=== PATIENT | male | born 1965 | race Caucasian/White ===

== ENCOUNTER 2018-09-07 13:34 | Outpatient (CLI) | payer OTHER ==
[~2018-09-07] VITALS: Ht 182.9 cm; Wt 104.3 kg
[~2018-09-07 13:34] MED LIST: DIVA-20; HCT25T; IBP800T; LISI20TA; OXYM30SP
[2018-09-07] MEDS ORDERED: PANT40TA3 PO (14:04)
[2018-09-07] MEDS ORDERED: ALPR0.254 PO (14:04)
[2018-09-07] MEDS ORDERED: MULT-1056 PO (14:04)
[2018-09-07] MEDS ORDERED: RT-ALBUINH IH (14:04)
[2018-09-07] MEDS ORDERED: SIMV40TA PO (14:04)
[2018-09-07] MEDS ORDERED: ALLO300T2 PO (14:04)
[2018-09-07] MEDS ORDERED: TRAM50TA2 PO (14:04)
[2018-09-07] MEDS ORDERED: DIVA500T15 PO (14:04)
[2018-09-07] MEDS ORDERED: FLUT9.9S NSEACH (14:04)
[2018-09-07] MEDS ORDERED: LISI-552 PO (14:04)
[2018-09-07] MEDS ORDERED: HYDR25TA4 PO (14:04)
== END 2018-09-07 14:05 | disposition home or self-care (01) ==
LOC: PREOP 13:34
PROVIDERS: ATTEND Specialist
DX: Z01.818 Encounter for other preprocedural examination (principal)

== ENCOUNTER 2018-09-11 07:19 | Day surgery (SDC) | payer BC, OTHER ==
[~2018-09-11] VITALS: Ht 182.9 cm; Wt 104.3 kg
[~2018-09-11 07:19] MED LIST changes: +ALLO300T2 PO; +ALPR0.254 PO; +DIVA500T15 PO; +FLUT9.9S NSEACH; +HYDR25TA4 PO; +LISI-552 PO; +MULT-1056 PO; +PANT40TA3 PO; +RT-ALBUINH IH; +SIMV40TA PO; +TRAM50TA2 PO
[2018-09-11] MEDS ORDERED: LIDOCAINE PF 1% 2 ML AMP IR PRN (07:30)
[2018-09-11] MEDS ORDERED: POVIDONE (BETADINE) OPHTH SOLN 5% 30 ML OP ONE (07:30)
[2018-09-11] MEDS ORDERED: MOXIFLOXACIN OPHTH SOLN 5 MG/ML 0.3 ML SYRINGE OP ONE (07:30)
[2018-09-11] MEDS ORDERED: TIMOLOL MALEATE 0.5% 5 ML (TIMOPTIC) BTL OU PRN (07:30)
[2018-09-11 07:35] VITALS: BP 125/81
[2018-09-11] MEDS: TETRACAINE 0.5% OPHTH SOLN 4 ML BTL (SINGLE DOSE ONLY) OU PRN ×4 (07:39→07:55)
[2018-09-11] MEDS: PHENYLEPHRINE 10% OPHTH (NEO-SYN) 5 ML BTL OU SCH ×3 (07:47→07:55)
[2018-09-11] MEDS: CYCLOPENTOLATE 1% (CYCLOGYL) 2 ML DROPS OP SCH ×3 (07:47→07:55)
--- NOTE | 2018-09-11 08:01 | Ophthalmologist Pre-Op Note ---
Pre-Operative Progress Note H&P Reviewed The H&P was reviewed, patient examined and no changes noted. Date H&P Reviewed: Sep 11, 2018 Time H&P Reviewed: 08:01 Pre-Op Dx Cataract, Right Eye EL FRANZ MD Sep 11, 2018 08:01
[2018-09-11] MEDS ORDERED: MIDAZOLAM 2 MG/2 ML (VERSED) VIAL ONE (08:33)
--- NOTE | 2018-09-11 08:53 | Ophthalmology Operative Report ---
Cataract removal/placement IOL PREOPERATIVE DIAGNOSIS: Cataract Right Eye POSTOPERATIVE DIAGNOSIS: Cataract Right Eye PROCEDURE: Cataract removal and placement of posterior chamber implant, right eye SURGEON: Ashok Franz ANESTHESIA: Topical with sedation COMPLICATIONS: None ESTIMATED BLOOD LOSS: Minimal DESCRIPTION OF PROCEDURE: After proper informed consent was obtained, the patient, a 52 male, was taken to the Operating Room and the right eye was anesthetized with tetracaine. The right eye was then prepped and draped in the usual manner. A wire lid speculum was placed. A paracentesis was made at the left hand position. Preservative free lidocaine was injected into the anterior chamber followed by viscoelastic. A clear corneal incision was made in the temporal position. A capsulorrhexis was preformed and the central nuclear and cortical material were removed. The posterior capsule was polished and Jose Enrique 23.0 AU00T0 IOL was placed into the capsular bag. The residual viscoelastic was aspirated and balanced saline solution was injected into the anterior chamber. Moxifloxacin was injected into the anterior chamber. The wound was checked and found to be water tight. The patient tolerated the procedure well without complications. ASHOK FRANZ MD Sep 11, 2018 08:53
[2018-09-11 09:00] VITALS: BP 126/81
[2018-09-11] MEDS ORDERED: acetaZOLAMIDE ER 500 MG CAP (DIAMOX SEQUELS) PO ONE (09:00)
--- NOTE | 2018-09-11 13:10 | Anesthesia-General Post-Op ---
MAC Patient Condition Mental Status/LOC: Same as Preop Cardiovascular: Satisfactory Nausea/Vomiting: Absent Respiratory: Satisfactory Pain: Controlled Complications: Absent Post Op Complications Complications None Follow Up Care/Instructions Patient Instructions None needed. Anesthesiology Discharge Order Discharge Order Patient is doing well, no complaints, stable vital signs, no apparent adverse anesthesia problems. No complications reported per nursing. BLU SIMEON CRNA Sep 11, 2018 13:10
== END 2018-09-11 09:00 | disposition home or self-care (01) ==
LOC: SDC 07:19
PROVIDERS: ATTEND Specialist
DX: H25.11 Age-related nuclear cataract, right eye (principal); I10 Essential (primary) hypertension; K21.9 Gastro-esophageal reflux disease without esophagitis; F41.9 Anxiety disorder, unspecified; F17.210 Nicotine dependence, cigarettes, uncomplicated; Z79.899 Other long term (current) drug therapy

== ENCOUNTER 2018-09-30 09:30 | Outpatient (CLI) | payer BC | END 2018-09-30 09:51 | disposition home or self-care (01) | LOC: PREOP 09:30 | PROVIDERS: ATTEND Specialist | DX: Z01.818 Encounter for other preprocedural examination (principal) ==

== ENCOUNTER 2018-10-02 05:59 | Day surgery (SDC) | payer BC ==
[~2018-10-02] VITALS: Ht 182.9 cm; Wt 104.3 kg
[2018-10-02] MEDS ORDERED: TIMOLOL MALEATE 0.5% 5 ML (TIMOPTIC) BTL OU PRN (06:15)
[2018-10-02] MEDS ORDERED: LIDOCAINE PF 1% 2 ML AMP IR PRN (06:15)
[2018-10-02] MEDS ORDERED: MOXIFLOXACIN OPHTH SOLN 5 MG/ML 0.3 ML SYRINGE OP ONE (06:15)
[2018-10-02] MEDS ORDERED: POVIDONE (BETADINE) OPHTH SOLN 5% 30 ML OP ONE (06:15)
[2018-10-02 06:16] VITALS: BP 127/80
[2018-10-02] MEDS: TETRACAINE 0.5% OPHTH SOLN 4 ML BTL (SINGLE DOSE ONLY) OU PRN ×4 (06:19→06:41)
[2018-10-02] MEDS: CYCLOPENTOLATE 1% (CYCLOGYL) 2 ML DROPS OP SCH ×3 (06:28→06:41)
[2018-10-02] MEDS: PHENYLEPHRINE 10% OPHTH (NEO-SYN) 5 ML BTL OU SCH ×3 (06:28→06:41)
--- NOTE | 2018-10-02 07:03 | Ophthalmologist Pre-Op Note ---
Pre-Operative Progress Note H&P Reviewed The H&P was reviewed, patient examined and no changes noted. Date H&P Reviewed: Oct 02, 2018 Time H&P Reviewed: 07:03 Pre-Op Dx Cataract, Left Eye EL FRANZ MD Oct 02, 2018 07:03
[2018-10-02] MEDS ORDERED: MIDAZOLAM 2 MG/2 ML (VERSED) VIAL ONE (07:13)
[2018-10-02] MEDS ORDERED: acetaZOLAMIDE ER 500 MG CAP (DIAMOX SEQUELS) PO ONE (07:30)
--- NOTE | 2018-10-02 07:31 | Ophthalmology Operative Report ---
Cataract removal/placement IOL PREOPERATIVE DIAGNOSIS: Cataract Left Eye POSTOPERATIVE DIAGNOSIS: Cataract Left Eye PROCEDURE: Cataract removal and placement of posterior chamber implant, left eye SURGEON: Ashok Franz ANESTHESIA: Topical with sedation COMPLICATIONS: None ESTIMATED BLOOD LOSS: Minimal DESCRIPTION OF PROCEDURE: After proper informed consent was obtained, the patient, a 52 male, was taken to the Operating Room and the left eye was anesthetized with tetracaine. The left eye was then prepped and draped in the usual manner. A wire lid speculum was placed. A paracentesis was made at the left hand position. Preservative free lidocaine was injected into the anterior chamber followed by viscoelastic. A clear corneal incision was made in the temporal position. A capsulorrhexis was preformed and the central nuclear and cortical material were removed. The posterior capsule was polished and an Jose Enrique 22.5 AU00T0 was placed into the capsular bag. The residual viscoelastic was aspirated and balanced saline solution was injected into the anterior chamber. Moxifloxacin was injected into the anterior chamber. The wound was checked and found to be water tight. The patient tolerated the procedure well without complications. ASHOK FRANZ MD Oct 02, 2018 07:31
[2018-10-02 07:40] VITALS: BP 133/74
--- NOTE | 2018-10-02 10:19 | Anesthesia-General Post-Op ---
MAC Patient Condition Mental Status/LOC: Same as Preop Cardiovascular: Satisfactory Nausea/Vomiting: Absent Respiratory: Satisfactory Pain: Controlled Complications: Absent Post Op Complications Complications None Follow Up Care/Instructions Patient Instructions None needed. Anesthesiology Discharge Order Discharge Order Patient is doing well, no complaints, stable vital signs, no apparent adverse anesthesia problems. No complications reported per nursing. WILLIAM CUADRA CRNA Oct 02, 2018 10:19
== END 2018-10-02 07:40 | disposition home or self-care (01) ==
LOC: SDC 05:59
PROVIDERS: ATTEND Specialist
DX: H25.12 Age-related nuclear cataract, left eye (principal); I10 Essential (primary) hypertension; F17.210 Nicotine dependence, cigarettes, uncomplicated; K21.9 Gastro-esophageal reflux disease without esophagitis; F41.9 Anxiety disorder, unspecified; Z79.899 Other long term (current) drug therapy

== ENCOUNTER → 2020-04-05 | Outpatient (CLI) | payer BC ==
[~2020-04-05] MED LIST changes: +HOLD METFORMIN - RECEIVED CONTRAST 20 ML VIAL IV SCH; +IOHEXOL 350 MG/ML 100 ML (OMNIPAQUE 350) VIAL IV ONE; +NS 100 ML (IVPB) BAG IV ONE; -TRAM50TA2 PO; +TRM50T PO
[2020-04-05 08:23] LABS: ALANINE AMINOTRANSFERASE 48 U/L (0-55); ALBUMIN 4.6 GM/DL (3.2-4.5); ALKALINE PHOSPHATASE 47 U/L (40-136); BILIRUBIN,TOTAL 0.4 MG/DL (0.1-1.0); BUN/CREATININE RATIO 11; CALCIUM 9.3 MG/DL (8.5-10.1); CARBON DIOXIDE 27 MMOL/L (21-32); CHLORIDE 100 MMOL/L (98-107); CREATININE SERUM 0.93 MG/DL (0.60-1.30); GFR ESTIMATED > 60; GLUCOSE 113 MG/DL (70-105); POTASSIUM 4.3 MMOL/L (3.6-5.0); SODIUM 139 MMOL/L (135-145); TOTAL PROTEIN 7.9 GM/DL (6.4-8.2)
--- NOTE | 2020-04-05 09:23 | Diagnostic Imaging Report ---
PROCEDURE: CT head with and without contrast. TECHNIQUE: Multiple contiguous axial images were obtained through the brain before and after the administration of intravenous contrast. Auto Exposure Controls were utilized during the CT exam to meet ALARA standards for radiation dose reduction. INDICATION: Constant headache and speech difficulty. No prior studies are available for comparison. Ventricles and sulci are within normal limits. No sulcal effacement or midline shift is identified. No acute intra-axial or extra-axial hemorrhage is detected. No abnormal enhancement following contrast administration is identified. Visualized paranasal sinuses demonstrate some mild mucosal thickening of the sphenoid sinus and ethmoid air cells. No air-fluid levels are seen. IMPRESSION: Mild paranasal sinus mucosal disease. CT brain with and without contrast is otherwise unremarkable. Dictated by: Dictated on workstation # [id number]
== END ==
LOC: RAD 07:46
PROVIDERS: ATTEND Nurse Practitioner Family
DX: J34.89 Other specified disorders of nose and nasal sinuses (principal); R42 Dizziness and giddiness
CPT/HCPCS: 36415; 70470; 80053

== ENCOUNTER → 2020-09-07 | Outpatient (CLI) | payer BC ==
[~2020-09-07] MED LIST changes: +ALPR.25T PO; -ALPR0.254 PO; -HOLD METFORMIN - RECEIVED CONTRAST 20 ML VIAL IV SCH; -IOHEXOL 350 MG/ML 100 ML (OMNIPAQUE 350) VIAL IV ONE; -LISI-552 PO; +LISI20TA26 PO; -NS 100 ML (IVPB) BAG IV ONE; -PANT40TA3 PO; +PANT40TA52 PO
--- NOTE | 2020-09-07 15:41 | Diagnostic Imaging Report ---
PROCEDURE: CT sinuses without contrast TECHNIQUE: Multiple contiguous axial images were obtained through the sinuses without the use of intravenous contrast. Coronal and sagittal reformations were then performed. Auto Exposure Controls were utilized during the CT exam to meet ALARA standards for radiation dose reduction. INDICATION: Sinusitis, cataracts. FINDINGS: The nasal septum is midline. Turbinates unremarkable. There is resection of the medial maxillary sinus meade and partial ethmoidectomy. The residual ethmoid air cells show some membrane thickening and partial opacification posteriorly, greater left. Globular mild membrane thickening in the sphenoid sinuses. There is a mucus retention cyst and superimposed membrane disease thickening in the floor of the right maxillary sinus. The reconstructed maxillary sinus ostia are widely patent. There is no paranasal sinus air-fluid level. The frontal sinuses are clear. The orbital contents unremarkable. The left mastoid air cells and middle ear cavities are clear. The right-sided mastoid air cells show no opacification inferiorly. The nasopharynx shows no suspicious asymmetry. IMPRESSION: 1. Postsurgical changes and chronic appearing paranasal sinus membrane disease without air-fluid level or ostial obstruction. 2. Relatively mild unilateral right-sided mastoid effusion. Dictated by: Dictated on workstation # [id number]
== END ==
LOC: RAD 10:48
PROVIDERS: ATTEND Otolaryngology Otolaryngology/Facial Plastic Surgery
DX: J32.9 Chronic sinusitis, unspecified (principal); H74.8X1 Other specified disorders of right middle ear and mastoid; Z98.890 Other specified postprocedural states
CPT/HCPCS: 70486

== ENCOUNTER 2021-03-21 10:10 | Emergency (ER) | payer BC ==
[~2021-03-21] VITALS: Ht 182 cm; Wt 102.0 kg
[2021-03-21] MEDS ORDERED: dexAMETHasone 6 MG TAB (DECADRON) ONE (11:09)
[2021-03-21] MEDS ORDERED: HYDROcodone/APAP 5 MG/325 MG (LORTAB) TAB ONE (11:09)
--- NOTE | 2021-03-21 11:10 | ED General ---
General Stated Complaint: SOB Source of Information: Patient Exam Limitations: No Limitations History of Present Illness Date Seen by Provider: Mar 21, 2021 Time Seen by Provider: 11:09 Initial Comments To ER with a cough nonproductive in nature that began on 03/16/2021. He was tested on Monday 03/19 at [facility] and tested negative for Covid. Yesterday he developed a fever up to 101. He does smoke but does not wear oxygen. Does not have a diagnosis of COPD. Timing/Duration: 3-4 Days Severity: Moderate Associated Systoms: Cough Allergies and Home Medications Allergies Coded Allergies: No Known Drug Allergies (Unverified , 10/13/09) Home Medications ALPRAZolam 0.25 Mg Tablet, 0.25 MG PO HS, (Reported) Albuterol Sulfate 1 Puff Puff, 2 PUFF IH Q6H PRN for WHEEZING, (Reported) 1 PUFF = 90 MCG Allopurinol 300 Mg Tablet, 300 MG PO DAILY, (Reported) Divalproex Sodium 500 Mg Tab.er.24h, 500 MG PO BID, (Reported) Fluticasone Propionate 9.9 Ml [place].susp, 2 SPRAY NSEACH DAILY, (Reported) Hydrochlorothiazide 25 Mg Tablet, 25 MG PO DAILY, (Reported) Lisinopril 20 Mg Tablet, 20 MG PO DAILY, (Reported) Multivit-Min/FA/Lycopen/Lutein 1 Each Tablet, 1 EACH PO DAILY, (Reported) Pantoprazole Sodium 40 Mg Tablet.dr, 40 MG PO BID, (Reported) Simvastatin 40 Mg Tablet, 40 MG PO DAILY, (Reported) Tramadol HCl 50 Mg Tablet, 100 MG PO Q6H PRN for PAIN-MILD, (Reported) TAKE 2 (50MG) TABS Patient Home Medication List Home Medication List Reviewed: Yes Review of Systems Review of Systems Constitutional: see HPI EENTM: see HPI Respiratory: see HPI, cough Cardiovascular: no symptoms reported Genitourinary: no symptoms reported Musculoskeletal: no symptoms reported Skin: no symptoms reported Psychiatric/Neurological: No Symptoms Reported Hematologic/Lymphatic: No Symptoms Reported Immunological/Allergic: no symptoms reported Past Sn[place]hi-Cawtjs-Inhthf Hx Past Medical History Reproductive Disorders: No Physical Exam Vital Signs Vital Signs - First Documented 03/21/21 03/21/21 10:32 10:40 Temp 37.6 Pulse 110 Resp 16 B/P (MAP) 128/88 (101) Pulse Ox 96 O2 Delivery Room Air Capillary Refill : Height, Weight, BMI Height: 6'0.00" Weight: 230lbs. 0.0oz. [id number]; BMI Method: General Appearance: No Apparent Distress, WD/WN, Other (Oxygen 93 to 96% on room air. Heart rate 89.) Eyes: Bilateral Eye Normal Inspection, Bilateral Eye PERRL, Bilateral Eye EOMI Neck: Full Range of Motion, Normal Inspection Respiratory: No Accessory Muscle Use, No Respiratory Distress, Decreased Breath Sounds, Wheezing Cardiovascular: Regular Rate, Rhythm, Normal Peripheral Pulses Gastrointestinal: Normal Bowel Sounds, Non Tender, Soft Extremity: Normal Capillary Refill, Normal Inspection Neurologic/Psychiatric: Alert, Oriented x3 Progress/Results/Core Measures Suspected Sepsis SIRS Temperature: Pulse: Respiratory Rate: Laboratory Tests 03/21/21 11:02: White Blood Count 9.1 Blood Pressure / Mean: Laboratory Tests 03/21/21 11:02: Creatinine 0.90, Platelet Count 289, Total Bilirubin 0.3 Results/Orders Lab Results Laboratory Tests Test 03/21/21 11:02 03/21/21 11:07 Range/Units White Blood Count 9.1 4.3-11.0 10^3/uL Red Blood Count 4.94 4.30-5.52 10^6/uL Hemoglobin 15.0 13.3-17.7 g/dL Hematocrit 44 40-54 % Mean Corpuscular Volume 88 80-99 fL Mean Corpuscular Hemoglobin 30 25-34 pg Mean Corpuscular Hemoglobin Concent 35 32-36 g/dL Red Cell Distribution Width 12.8 10.0-14.5 % Platelet Count 289 130-400 10^3/uL Mean Platelet Volume 9.3 9.0-12.2 fL Immature Granulocyte % (Auto) 2 % Neutrophils (%) (Auto) 89 H 42-75 % Lymphocytes (%) (Auto) 6 L 12-44 % Monocytes (%) (Auto) 3 0-12 % Eosinophils (%) (Auto) 0 0-10 % Basophils (%) (Auto) 1 0-10 % Neutrophils # (Auto) 8.1 H 1.8-7.8 10^3/uL Lymphocytes # (Auto) 0.5 L 1.0-4.0 10^3/uL Monocytes # (Auto) 0.3 0.0-1.0 10^3/uL Eosinophils # (Auto) 0.0 0.0-0.3 10^3/uL Basophils # (Auto) 0.1 0.0-0.1 10^3/uL Immature Granulocyte # (Auto) 0.2 H 0.0-0.1 10^3/uL Neutrophils % (Manual) 88 % Lymphocytes % (Manual) 6 % Monocytes % (Manual) 1 % Eosinophils % (Manual) 0 % Basophils % (Manual) 0 % Band Neutrophils 5 % Blood Morphology Comment NORMAL Sodium Level 134 L 135-145 MMOL/L Potassium Level 3.8 3.6-5.0 MMOL/L Chloride Level 96 L 98-107 MMOL/L Carbon Dioxide Level 26 21-32 MMOL/L Anion Gap 12 5-14 MMOL/L Blood Urea Nitrogen 10 7-18 MG/DL Creatinine 0.90 0.60-1.30 MG/DL Estimat Glomerular Filtration Rate 88 BUN/Creatinine Ratio 11 Glucose Level 130 H 70-105 MG/DL Calcium Level 10.0 8.5-10.1 MG/DL Corrected Calcium 8.5-10.1 MG/DL Total Bilirubin 0.3 0.1-1.0 MG/DL Aspartate Amino Transf (AST/SGOT) 24 5-34 U/L Alanine Aminotransferase (ALT/SGPT) 38 0-55 U/L Alkaline Phosphatase 52 40-136 U/L B-Type Natriuretic Peptide 26.7 <100.0 PG/ML Total Protein 8.3 H 6.4-8.2 GM/DL Albumin 4.8 H 3.2-4.5 GM/DL Procalcitonin 0.06 <0.10 NG/ML SARS-CoV-2 RNA (RT-PCR) Not Detected Not Detecte My Orders Orders - CONNIE DON APRN Covid 19 Inhouse Test (03/21/21 10:43) Cbc With Automated Diff (03/21/21 10:53) Comprehensive Metabolic Panel (03/21/21 10:53) Ua Culture If Indicated (03/21/21 10:53) Ed Iv/Invasive Line Start (03/21/21 10:53) BNP (03/21/21 10:53) Chest 1 View, Ap/Pa Only (03/21/21 10:53) Hydrocodone/Apap 5/325 Tablet (Lortab 5 (03/21/21 11:15) Dexamethasone Tablet (Decadron Tablet) (03/21/21 11:15) Procalcitonin (Pct) (03/21/21 11:08) Dexamethasone Tablet (Decadron Tablet) (03/21/21 11:09) Hydrocodone/Apap 5/325 Tablet (Lortab 5 (03/21/21 11:09) Manual Differential (03/21/21 11:02) Albuterol/Ipra Inhalation Soln (Duoneb I (03/21/21 12:15) Svn Small Volume Nebulizer (03/21/21 12:04) Medications Given in ED Current Medications Medications Dose Ordered Sig/Walter Route Start Time Stop Time Status Last Admin Dose Admin Acetaminophen/ Hydrocodone Bitart 1 ea STK-MED ONCE .ROUTE 03/21/21 11:09 03/21/21 11:11 DC 03/21/21 11:14 1 EA Albuterol/ Ipratropium 3 ml ONCE ONCE INH 03/21/21 12:15 03/21/21 12:16 03/21/21 12:12 3 ML Dexamethasone 6 mg STK-MED ONCE .ROUTE 03/21/21 11:09 03/21/21 11:11 DC 03/21/21 11:14 6 MG Vital Signs/I&O 03/21/21 03/21/21 10:32 10:40 Temp 37.6 Pulse 110 110 Resp 16 B/P (MAP) 128/88 (101) Pulse Ox 96 95 O2 Delivery Room Air Room Air Capillary Refill : Diagnostic Imaging Diagonstic Imaging: Xray Comments cxr clear Reviewed: Reviewed by Me Departure Impression Primary Impression: Reactive airway disease Disposition: 01 HOME, SELF-CARE Condition: Stable Departure-Patient Inst. Decision time for Depature: 12:17 Referrals: SELF,KEVIN LINARES (PCP/Family) Primary Care Physician Patient Instructions: How to Use a Nebulizer ED Add. Discharge Instructions: To use your nebulizer breathing treatment every 4 hours for the next 3 days. Take the steroids as directed and the antibiotics. Scripts Azithromycin (Azithromycin) 250 Mg Tablet 250 MG PO UD, #6 TAB TAKE 2 TABLETS ON DAY ONE THEN TAKE 1 TABLET DAILY FOR FOUR MORE DAYS Prov: CONNIE DON ASBESTOS SURVEYOR 03/21/21 Prednisone (Prednisone) 20 Mg Tab 40 MG PO DAILY, #8 TAB 0 Refills Prov: CONNIE DON APRN 03/21/21 Work/School Note: Work Release Form Date Seen in the Emergency Department: Mar 21, 2021 Return to Work: Mar 23, 2021 CONNIE DON APRN Mar 21, 2021 11:10
[2021-03-21] MEDS ORDERED: dexAMETHasone 6 MG TAB (DECADRON) PO SCH (11:15)
[2021-03-21] MEDS ORDERED: HYDROcodone/APAP 5 MG/325 MG (LORTAB) TAB PO ONE (11:15)
[2021-03-21 11:17] LABS: ALBUMIN 4.8 GM/DL (3.2-4.5)
[2021-03-21 11:18] LABS: CHLORIDE 96 MMOL/L (98-107); POTASSIUM 3.8 MMOL/L (3.6-5.0); SODIUM 134 MMOL/L (135-145)
[2021-03-21 11:20] LABS: BASOPHILS # (AUTO) 0.1 10^3/uL (0.0-0.1); BASOPHILS % (AUTO) 1 % (0-10); EOSINOPHILS % (AUTO) 0 % (0-10); GLUCOSE 130 MG/DL (70-105); HEMATOCRIT 44 % (40-54); LYMPHOCYTES # (AUTO) 0.5 10^3/uL (1.0-4.0); LYMPHOCYTES % (AUTO) 6 % (12-44); MEAN CORPUSCULAR HEMOGLOBIN 30 pg (25-34); MEAN CORPUSCULAR HGB CONC 35 g/dL (32-36); MEAN CORPUSCULAR VOLUME 88 fL (80-99); MEAN PLATELET VOLUME 9.3 fL (9.0-12.2); MONOCYTES # (AUTO) 0.3 10^3/uL (0.0-1.0); MONOCYTES % (AUTO) 3 % (0-12); NEUTROPHILS # (AUTO) 8.1 10^3/uL (1.8-7.8); NEUTROPHILS % (AUTO) 89 % (42-75); PLATELET COUNT 289 10^3/uL (130-400); TOTAL PROTEIN 8.3 GM/DL (6.4-8.2); WHITE BLOOD COUNT 9.1 10^3/uL (4.3-11.0)
[2021-03-21 11:21] LABS: CARBON DIOXIDE 26 MMOL/L (21-32)
[2021-03-21 11:22] LABS: BILIRUBIN,TOTAL 0.3 MG/DL (0.1-1.0)
[2021-03-21 11:23] LABS: ALKALINE PHOSPHATASE 52 U/L (40-136)
[2021-03-21 11:24] LABS: GFR ESTIMATED 88
[2021-03-21 11:25] LABS: BUN/CREATININE RATIO 11
--- NOTE | 2021-03-21 11:25 | Diagnostic Imaging Report ---
INDICATION: Cough COMPARISON: 10/13/2009 FINDINGS: Frontal view of the chest demonstrates clear lungs bilaterally. The heart size is normal. There is no pneumothorax. Osseous structures are normal. IMPRESSION: No acute findings. Normal chest. Dictated by: Dictated on workstation # [id number]
[2021-03-21 11:26] LABS: ALANINE AMINOTRANSFERASE 38 U/L (0-55)
[2021-03-21 11:42] LABS: BAND NEUTROPHILS 5 %; BASOPHILS % (MANUAL) 0 %; EOSINOPHILS % (MANUAL) 0 %; LYMPHOCYTES % (MANUAL) 6 %; MONOCYTES % (MANUAL) 1 %; NEUTROPHILS % (MANUAL) 88 %; RBC MORPH NORMAL
[2021-03-21] MEDS ORDERED: RT-ALBUTEROL/IPRATROPIUM 3 ML (DUONEB) VIAL INH ONE (12:15)
[2021-03-21] MEDS ORDERED: PRD20T PO (12:18)
[2021-03-21] MEDS ORDERED: AZIT250T12 PO (12:18)
[2021-03-21 14:17] VITALS: BP 138/78
== END 2021-03-21 12:25 | disposition home or self-care (01) ==
LOC: EDUNIT# 10:10 → ER 10:11
DX: J45.909 Unspecified asthma, uncomplicated (principal); F17.200 Nicotine dependence, unspecified, uncomplicated; Z20.822 Contact with and (suspected) exposure to COVID-19
CPT/HCPCS: 36415; 71045; 80053; 83880; 84145; 85007; 85027; 87636

== ENCOUNTER → 2022-09-12 | Outpatient (CLI) | payer BC ==
[~2022-09-12] MED LIST changes: +ALBU8.5H6 IH; +AZIT250T12 PO; +GADOTERATE 0.5 MMOL/ML (CLARISCAN) 20 ML VIAL IV ONE; +PRD20T PO; -RT-ALBUINH IH
--- NOTE | 2022-09-12 13:29 | Diagnostic Imaging Report ---
Clinical Indication: Patient having neck pain and headaches and loss. Exam: MRI of the cervical spine performed without IV contrast. Sequences include sagittal T1, sagittal T2, sagittal T2 fat-sat, and axial T2. Comparison: None. Findings: There is no acute cervical spine fracture or dislocation. Limited visualization of posterior fossa is unremarkable. Cervical spinal cord has normal cord caliber with no abnormal signal. There is artifact obscuring portions of the cervical cord. There is no significant paraspinal soft tissue abnormality. C1-C2: Unremarkable. C2-C3: There is moderate left facet arthropathy/hypertrophy and mild right facet arthropathy. There is severe left neural foramen narrowing and mild to moderate right neural foramen narrowing. There is no significant central canal stenosis. C3-C4: There is moderate left facet arthropathy/hypertrophy and moderate right facet arthropathy. There is severe right neural foramen narrowing and at least moderate left neural foramen narrowing. There is no significant central canal stenosis. C4-C5: There is mild diffuse disk bulge. There are small bilateral uncinate spurs. There is mild bilateral facet arthropathy. There is mild central canal narrowing. There is moderate bilateral neural foramen narrowing with the right side worse than the left. C5-C6: There is mild diffuse disk bulge with bilateral uncinate spurs. There is mild central canal narrowing. There is mild bilateral facet arthropathy. There is right-sided uncinate spurs. There is severe right neural foramen narrowing and mild to moderate left neural foramen narrowing. C6-C7: There is a diffuse disk bulge with moderate loss of disk space height. There is moderate central canal stenosis. There is severe right neural foramen narrowing and moderate left neural foramen narrowing. C7-T1: Unremarkable. IMPRESSION: There is multilevel cervical spine degenerative disk disease which is described above. Dictated by: Dictated on workstation # [id number]
--- NOTE | 2022-09-12 13:31 | Diagnostic Imaging Report ---
CLINICAL INDICATIONS: Patient is having neck pain, headache and hearing loss EXAM: MRI of the brain/ IACs performed without and with 20 cc of Clariscan IV contrast. Sequences include sagittal T1 localizer, axial T2, axial flair, axial T1, axial gradient echo, DWI, ADC map, axial T2 3D FIESTA, axial T1 post contrast whole brain, coronal T1 fat-sat post IV contrast whole brain, and sagittal T1 post IV contrast whole brain. COMPARISONS: CT scan of the sinuses dated 09/07/2020. FINDINGS: TEMPORAL BONE STRUCTURES: There is a large amount of fluid within both mastoid air cells and middle ear regions. The comparison CT sinus study showed moderate fluid in the right mastoid air cells and clear left mastoid air cells. The internal auditory canal, otic capsule, middle ear, and temporal bone structures have normal anatomic appearance and are unremarkable. There is no abnormal fluid in the mastoid air cells seen. There is slight blurring possibly due to resolution involving the 7th and 8th cranial nerves in the IAC regions bilaterally. This limits evaluation. Otherwise, the visualized nerves VII and VIII within the IACs bilaterally and cisternal portions have normal appearance. CISTERNAL STRUCTURES: There is no cisternal mass seen. The remainder of the visualized cranial nerves in the basal cistern regions are unremarkable. BRAIN PARENCHYMA: A few focal areas of chronic small vessel ischemic disease seen involving the cerebral hemispheres. There is normal razo/ white matter distinction. There is no significant architectural distortion, midline shift, or herniation. There is no abnormal IV contrast enhancement or diffusion restriction signal changes. VENTRICLES: There is no hydrocephalus. VISUALIZED INTRACRANIAL VESSELS: Unremarkable as visualized. SKULL/ ORBITS: Unremarkable. VISUALIZED PARANASAL SINUSES: There is mild mucosal thickening involving both maxillary sinuses, ethmoid sinus, sphenoid sinus. IMPRESSION: 1: There is a large amount of fluid involving both mastoid air cells and middle ear regions which may be related to otomastoiditis. There is no posterior nasopharyngeal mass seen on the given images. 2: Otherwise, unremarkable MRI of the internal auditory canals, temporal bone structures, and basal cisterns, as visualized. 3: Mild age-related brain parenchymal changes. 4: There is mild paranasal sinus disease. Dictated by: Dictated on workstation # [id number]
== END ==
LOC: RAD 12:30
PROVIDERS: ATTEND Otolaryngology Otolaryngology/Facial Plastic Surgery
DX: M50.321 Other cervical disc degeneration at C4-C5 level (principal); M50.322 Other cervical disc degeneration at C5-C6 level; M50.323 Other cervical disc degeneration at C6-C7 level; M47.812 Spondylosis without myelopathy or radiculopathy, cervical region; M48.02 Spinal stenosis, cervical region; R51.9 Headache, unspecified; H91.90 Unspecified hearing loss, unspecified ear
CPT/HCPCS: 70553; 72141